=== PATIENT | male | born 1970 | race Caucasian/White ===

== ENCOUNTER 2017-09-09 22:24 | Emergency (ER) | payer OTHER ==
--- NOTE | 2017-09-09 22:31 | EDPHY ---
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 He has 1 kidney he completed the iron man today and finished. He went back to his hotel after the iron man showered however started feeling like he was dehydrated and went to the [employer] [facility] to get an IV and they did basic blood work and noticed that his creatinine was elevated. They encouraged him to come to the emergency room. He denies any significant planes, he does state he feels tired he does state that he drank fluids during the iron man. No vomiting. Denies any significant pain at this time. Past Medical History: Dream cell cancer status post chemotherapy approximately 17 years ago. Past Surgical History: Kidney removal and spleen removal Social History: Denies daily use drugs alcohol tobacco. Family History: Noncontributory ROS REVIEW OF SYSTEMS: A comprehensive 10 point review of systems is otherwise negative aside from elements mentioned in the history of present illness. Exam Constitutional triage nursing summary reviewed, vital signs reviewed, awake/ alert. Eyes normal conjunctivae and sclera, EOMI, PERRLA. HENT normal inspection, atraumatic, moist mucus membranes, no epistaxis, neck supple/ no meningismus, no raccoon eyes. Respiratory clear to auscultation bilaterally, normal breath sounds, no respiratory distress, no wheezing. Cardiovascular rate normal, regular rhythm, no murmur, no edema, distal pulses normal. Gastrointestinal soft, non-tender, no rebound, no guarding, normal bowel sounds, no distension, no pulsatile mass. Genitourinary no CVA tenderness. Musculoskeletal no midline vertebral tenderness, full range of motion, no calf swelling, no tenderness of extremities, no meningismus, good pulses, neurovascularly intact. Skin pink, warm, & dry, no rash, skin atraumatic. Neurologic awake, alert and oriented x 3, AAOx3, moves all 4 extremities equally, motor intact, sensory intact, CN II-XII intact, normal cerebellar, normal vision, normal speech. Psychiatric normal mood/affect. Heme/Lymph/Immune no lymphadenopathy. Differential Diagnosis: Includes but is not limited to in a particular order dehydration, electrolyte disturbance, hyponatremia, renal failure, rhabdo Medical Decision Making: Plan for this patient IV establishment blood draw, hold IV fluids at this time, check creatinine and sodium and CK. Re-evaluation: 033: Patient re-examined he has received 3 L of fluid here. His CK is trending down additionally his creatinine is greatly improving. He has been urinating feels much better. He is well-hydrated resting. He is eager for discharge. He does have a single kidney due to previous nephrectomy. I feel comfortable allowing to go home his creatinine is improving and CK trending down. I do encourage him to drink lots of fluids today and continue to urinate. If he develops vomiting severe pain or any further questions or concerns he should return to the ER. Source: Patient, Family Constitutional: Initial Vital Signs Temperature (C) 36.6 C 09/09/17 22:30 Heart Rate 77 09/09/17 22:30 Respiratory Rate 16 09/09/17 22:30 Blood Pressure 107/74 09/09/17 22:30 O2 Sat (%) 93 09/09/17 22:30 O2 Delivery Mode Room Air Allergies/Adverse Reactions: No Known Allergies Allergy (Unverified 09/09/17 22:30) Home Medications: Medication Instructions Recorded NK [No Known Home Meds] 09/09/17 Medical Decision Making - Data Points Laboratory Results: Laboratory Results 09/09/17 20:35 09/10/17 02:31 09/10/17 09/10/17 09/10/17 02:31 00:45 00:10 WBC RBC Hgb Hct MCV MCH MCHC RDW Plt Count MPV Neut % (Auto) Lymph % (Auto) [place] % (Auto) Eos % (Auto) Baso % (Auto) Nucleat RBC Rel Count Absolute Neuts (auto) Absolute Lymphs (auto) Absolute Monos (auto) Absolute Eos (auto) Absolute Basos (auto) Absolute Nucleated RBC Immature Gran % Seg Neutrophils % Band Neutrophils % Lymphocytes % Monocytes % Eosinophils % Basophils % Metamyelocytes % Myelocytes % Promyelocytes % Blast Cells % Immature Gran # Absolute Seg Neuts Absolute Band Neuts Absolute Lymphocytes Absolute Monocytes Absolute Eosinophils Absolute Basophils Absolute Metamyelocyte Absolute Myelocytes Absolute Promyelocytes Absolute Plasma Cells RBC/WBC/PLT Morphology Absolute Blast Cells Plasma Cells % Platelet Estimate Sodium 137 mEq/L mEq/L 138 mEq/L mEq/L (135-145) (135-145) Potassium 4.2 mEq/L mEq/L 4.0 mEq/L mEq/L (3.3-5.0) (3.3-5.0) Chloride 96 mEq/L L mEq/L 94 mEq/L L mEq/L (97-110) (97-110) Carbon Dioxide 28 mEq/l mEq/l 29 mEq/l mEq/l (22-31) (22-31) Anion Gap 13 mEq/L mEq/L 15 mEq/L mEq/L (8-16) (8-16) BUN 21 mg/dL mg/dL 23 mg/dL mg/dL (7-23) (7-23) Creatinine 1.4 mg/dL H mg/dL 1.5 mg/dL H mg/dL (0.7-1.3) (0.7-1.3) Estimated GFR 55 51 Glucose 109 mg/dL H mg/dL 98 mg/dL mg/dL (70-100) (70-100) Calcium 8.3 mg/dL L mg/dL 8.9 mg/dL mg/dL (8.5-10.4) (8.5-10.4) Total Bilirubin Conjugated Bilirubin Unconjugated Bilirubin AST ALT Alkaline Phosphatase Creatine Kinase 1372 IU/L H IU/L 1446 IU/L H IU/L (0-224) (0-224) CK-MB (CK-2) Fraction Pending 26.50 ng/mL H ng/mL (0.00-4.55) CK-MB (CK-2) % Pending 1.8 % % (0.0-4.0) Creatine Kinase Interp Pending NEGATIVE (NEGATIVE) Total Protein Albumin Urine Color YELLOW Urine Appearance HAZY Urine pH 5.0 (5.0-7.5) Ur Specific [place] 1.011 (1.002-1.030) Urine Protein NEGATIVE (NEGATIVE) Urine Ketones 1+ H (NEGATIVE) Urine Blood NEGATIVE (NEGATIVE) Urine Nitrate NEGATIVE (NEGATIVE) Urine Bilirubin NEGATIVE (NEGATIVE) Urine Urobilinogen NEGATIVE EU EU (0.2-1.0) Ur Leukocyte Esterase NEGATIVE (NEGATIVE) Urine Glucose NEGATIVE (NEGATIVE) 09/09/17 09/09/17 20:35 20:35 WBC 17.39 10^3/uL H 10^3/uL (3.80-9.50) RBC 5.30 10^6/uL 10^6/uL (4.40-6.38) Hgb 16.5 g/dL g/dL (13.7-17.5) Hct 46.5 % % (40.0-51.0) MCV 87.7 fL fL (81.5-99.8) MCH 31.1 pg pg (27.9-34.1) MCHC 35.5 g/dL g/dL (32.4-36.7) RDW 13.9 % % (11.5-15.2) Plt Count 262 10^3/uL 10^3/uL (150-400) MPV 10.4 fL fL (8.7-11.7) Neut % (Auto) Not Reported Lymph % (Auto) Not Reported [place] % (Auto) Not Reported Eos % (Auto) Not Reported Baso % (Auto) Not Reported Nucleat RBC Rel Count Not Reported Absolute Neuts (auto) Not Reported Absolute Lymphs (auto) Not Reported Absolute Monos (auto) Not Reported Absolute Eos (auto) Not Reported Absolute Basos (auto) Not Reported Absolute Nucleated RBC Not Reported Immature Gran % Not Reported Seg Neutrophils % 84.8 % % Band Neutrophils % 0 % % Lymphocytes % 5.1 % % Monocytes % 10.1 % % Eosinophils % 0 % % Basophils % 0 % % Metamyelocytes % 0 % % Myelocytes % 0 % % Promyelocytes % 0 % % Blast Cells % 0 % % Immature Gran # Not Reported Absolute Seg Neuts 14.75 10^/uL H 10^/uL (1.70-6.50) Absolute Band Neuts 0.00 10^3/uL 10^3/uL (0.00-0.70) Absolute Lymphocytes 0.89 10^3/uL L 10^3/uL (1.00-3.00) Absolute Monocytes 1.76 10^3/uL H 10^3/uL (0.30-0.80) Absolute Eosinophils 0.00 10^3/uL L 10^3/uL (0.03-0.40) Absolute Basophils 0.00 10^3/uL L 10^3/uL (0.02-0.10) Absolute Metamyelocyte 0.00 10^3/mL 10^3/mL (0.00-0.00) Absolute Myelocytes 0.00 10^3/mL 10^3/mL (0.00-0.00) Absolute Promyelocytes 0.00 10^3/uL 10^3/uL (0.00-0.00) Absolute Plasma Cells 0.00 10^3/uL 10^3/uL (0.00-0.00) RBC/WBC/PLT Morphology NORMAL (NORMAL) Absolute Blast Cells 0.00 10^3/uL 10^3/uL (0.00-0.00) Plasma Cells % 0 % % Platelet Estimate ADEQUATE (ADEQ) Sodium 134 mEq/L L mEq/L (135-145) Potassium 4.4 mEq/L mEq/L (3.3-5.0) Chloride 84 mEq/L L mEq/L (97-110) Carbon Dioxide 31 mEq/l mEq/l (22-31) Anion Gap 19 mEq/L H mEq/L (8-16) BUN 24 mg/dL H mg/dL (7-23) Creatinine 2.1 mg/dL H mg/dL (0.7-1.3) Estimated GFR 34 Glucose 95 mg/dL mg/dL (70-100) Calcium 9.7 mg/dL mg/dL (8.5-10.4) Total Bilirubin 2.0 mg/dL H mg/dL (0.1-1.4) Conjugated Bilirubin 0.5 mg/dL mg/dL (0.0-0.5) Unconjugated Bilirubin 1.5 mg/dL H mg/dL (0.0-1.1) AST 83 IU/L H IU/L (17-59) ALT 43 IU/L IU/L (21-72) Alkaline Phosphatase 57 IU/L IU/L (38-126) Creatine Kinase 1566 IU/L H IU/L (0-224) CK-MB (CK-2) Fraction 32.80 ng/mL H ng/mL (0.00-4.55) CK-MB (CK-2) % 2.1 % % (0.0-4.0) Creatine Kinase Interp NEGATIVE (NEGATIVE) Total Protein 8.2 g/dL g/dL (6.3-8.2) Albumin 4.7 g/dL g/dL (3.5-5.0) Urine Color Urine Appearance Urine pH Ur Specific [place] Urine Protein Urine Ketones Urine Blood Urine Nitrate Urine Bilirubin Urine Urobilinogen Ur Leukocyte Esterase Urine Glucose Medications Given: Discontinued Medications Sodium Chloride (Ns) 1,000 mls @ 0 mls/hr IV ONCE ONE PRN Reason: Wide Open Stop: 09/09/17 23:22 Last Admin: 09/09/17 23:23 Dose: 1,000 mls Sodium Chloride (Ns) 1,000 mls @ 0 mls/hr IV ONCE ONE PRN Reason: Wide Open Stop: 09/09/17 23:38 Last Admin: 09/09/17 23:53 Dose: 1,000 mls Sodium Chloride (Ns) 1,000 mls @ 0 mls/hr IV ONCE ONE PRN Reason: Wide Open Stop: 09/10/17 01:47 Last Admin: 09/10/17 01:54 Dose: 1,000 mls Departure - Departure Disposition: Home, Routine, Self-Care Clinical Impression: Dehydration, DARON (acute kidney injury) Rhabdomyolysis Qualifiers: Rhabdomyolysis type: non-traumatic Qualified Code(s): M62.82 - Rhabdomyolysis Condition: Good Instructions: Dehydration (ED) Additional Instructions: 1. Make sure to drink lots of fluids stay well-hydrated 2. Return to the emergency room if you have worsening symptoms questions or concerns. Referrals: NONE *PRIMARY CARE P,. [Primary Care Provider] - As per Instructions
[2017-09-09 22:51] LABS: PLATELET COUNT 262 10^3/uL (150-400)
[2017-09-09 22:56] LABS: CREATINE KINASE 1566 IU/L (0-224)
[2017-09-09] MEDS ORDERED: NS 1,000 ML IV ONE ×2 (23:21→23:37)
[2017-09-10 01:09] LABS: CREATINE KINASE 1446 IU/L (0-224)
[2017-09-10] MEDS ORDERED: NS 1,000 ML IV ONE (01:46)
[2017-09-10 02:50] LABS: CREATINE KINASE 1372 IU/L (0-224)
[2017-09-10 04:01] VITALS: BP 121/75
== END 2017-09-10 04:00 | disposition home or self-care (01) ==
DX: E86.0 Dehydration (principal); N17.9 Acute kidney failure, unspecified; M62.82 Rhabdomyolysis